=== PATIENT | female | born 1990 | race Caucasian/White ===

== ENCOUNTER 2018-05-19 10:02 | Emergency (ER) | payer BC ==
[2018-05-19 10:33] VITALS: BP 106/72; PULSE 74; TEMP 98.2; BMI 17.9
[2018-05-19 10:41] LABS: URINE APPEARANCE CLEAR; URINE BILIRUBIN NEGATIVE (NEGATIVE); URINE COLOR YELLOW; URINE GLUCOSE (UA) NEGATIVE (NEGATIVE); URINE KETONE NEGATIVE (NEGATIVE); URINE LEUK ESTERASE NEGATIVE (NEGATIVE); URINE NITRITE NEGATIVE (NEGATIVE); URINE PROTEIN NEGATIVE (NEGATIVE); URINE UROBILINOGEN 0.2 mg/dL (0.2-1.0)
[2018-05-19 10:44] LABS: HCG,QUALITATIVE URINE Negative
--- NOTE | 2018-05-19 11:38 | PDOC ---
History of Present Illness - General Chief Complaint: Urinary Problem Stated Complaint: painfula on urination Time Seen by Provider: 05/19/18 10:32 History Source: Patient Exam Limitations: No Limitations Past History - Past Medical History Allergies/Adverse Reactions: Allergies Allergy/AdvReac Type Severity Reaction Status Date / Time amoxicillin [Amoxicillin] Allergy Verified 02/26/13 13:15 Penicillins Allergy Hives Verified 02/26/13 13:15 Thyroid Disease: Yes - Suicide/Smoking/Psychosocial Hx Smoking Status: No Smoking History: Current every day smoker Have you smoked in the past 12 months: No Number of Cigarettes Smoked Daily: 10 Information on smoking cessation initiated: No Hx Alcohol Use: No Drug/Substance Use Hx: No *Physical Exam - Vital Signs Last Vital Signs Temp Pulse Resp BP Pulse Ox 98.2 F 74 18 106/72 99 05/19/18 10:17 05/19/18 10:17 05/19/18 10:17 05/19/18 10:17 05/19/18 10:17 - Physical Exam General Appearance: No: Apparent Distress Respiratory/Chest: positive: Lungs Clear, Normal Breath Sounds. negative: Respiratory Distress Cardiovascular: positive: Regular Rhythm, Regular Rate, S1, S2. negative: Murmur Female Pelvic Exam: positive: normal external exam, normal adnexa. negative: CMT, discharge, lesions, adnexal tenderness Gastrointestinal/Abdominal: positive: Normal Bowel Sounds, Tender (minimal TTP to LLQ; no TTP along RLQ), Soft. negative: Distended, Guarding, Rebound Musculoskeletal: negative: CVA Tenderness Integumentary: positive: Normal Color Neurologic: positive: Alert, Normal Mood/Affect ED Treatment Course - ADDITIONAL ORDERS Additional order review: Laboratory Results 05/19/18 10:22 Urine Color Yellow Urine Appearance Clear Urine pH 5.0 Ur Specific [place] 1.009 L Urine Protein Negative Urine Glucose (UA) Negative Urine Ketones Negative Urine Blood Negative Urine Nitrite Negative Urine Bilirubin Negative Urine Urobilinogen 0.2 Ur Leukocyte Esterase Negative Urine HCG, Qual Negative Medical Decision Making - Medical Decision Making 27 y/o F hx of hypothyroidism presents with LUQ pain radiating down to LLQ from today. Went to today, where she had urine test done which was normal and was advised to come to ED for further evaluation. Received Tylenol in UC which helped with pain. Denies dysuria, but mentions feeling a sense of discomfort along lower abdomen when pushing urine out. Denies fever, sob, vomiting, diarrhea, unusual vaginal discharge, hematuria. Denies prior abdominal surgeries UA negative UCG negative PE unremarkable Patient appears comfortable Not suspicious for acute abdominal/pelvic pathology Return precautions discussed 05/19/18 11:33 *DC/Admit/Observation/Transfer Diagnosis at time of Disposition: Abdominal pain Qualifiers: Abdominal location: left lower quadrant Qualified Code(s): R10.32 - Left lower quadrant pain - Discharge Dispostion Disposition: HOME Condition at time of disposition: Stable Decision to Admit order: No - Referrals Referrals: David Arguelles MD [Primary Care Provider] - 2 Days - Patient Instructions Printed Discharge Instructions: DI for Abdominal Pain-Adult Additional Instructions: Thank you for choosing [facility]. It was a pleasure taking care of you. Your urine test was normal If your urine culture is abnormal, you will be notified of results Return to the Emergency Department if your symptoms worsen or persist, you have fever, shortness of breath, chest pain, severe abdominal pain, vomiting, bloody stools, diarrhea or other concerning symptoms. - Post Discharge Activity
== END 2018-05-19 11:45 | disposition home or self-care (01) ==
LOC: JERFT 10:02
DX: R10.30 Lower abdominal pain, unspecified (principal); F17.210 Nicotine dependence, cigarettes, uncomplicated
CPT/HCPCS: 81003; 84703; 87086; 99281-25

== ENCOUNTER 2018-10-23 20:35 | Emergency (ER) | payer BC ==
[2018-10-23 20:52] VITALS: TEMP 98.5; BMI 17.9
--- NOTE | 2018-10-23 21:33 | PDOC ---
Attending Attestation - Resident Resident Name: SintiaJosh - ED Attending Attestation I have performed the following: I have examined & evaluated the patient, The case was reviewed & discussed with the resident, I agree w/resident's findings & plan, Exceptions are as noted - HPI HPI: 10/23/18 22:54 this 27 yo female has had palpitations and chest tightness for 2 days 10/24/18 01:21 - Physicial Exam PE: 10/23/18 23:16 thin 27 yo presents with complaint of palpitations for 2 days head ncat neck supple lngs cta b/l cvs [id number] abd nontender extremities no edema skin warm and dry neuro [id number],ambulatory 10/23/18 23:18 - Medical Decision Making 10/23/18 21:33 ekg nsr@69 bpm,yhr=051, no ekg changes from prior ekg 10/23/18 23:24 cxr no infiltrates,no consolidations,normal mediastinum,no effusions,normal cardiac silhouette 10/24/18 01:07 negative d dimer negative troponin 10/24/18 01:08 cbc and chemistries are unremarkable musculoskeletal pain/atypical chest pain
--- NOTE | 2018-10-23 22:22 | PDOC ---
History of Present Illness - General Chief Complaint: Palpitations Stated Complaint: HEART PALPITATIONS Time Seen by Provider: 10/23/18 21:25 History Source: Patient Exam Limitations: No Limitations - History of Present Illness Initial Comments: 10/23/18 22:01 27 yo F with a hx of hypothyroidism and known EKG changes (EKG done at Dr. Conley's office report shows poor R wave progression and right harrison axis deviation presents to the emergency department with palpitations that have been ongoing for 5 days. Per the patient, she states that her usual episodes usually are one episode and do not occur for longer than a few minutes. She has been evaluated by her PMD with an EKG showing on report that she had poor R wave progression and right axis deviation (May 2018). In addition, the patient states she is stressed due to an upcoming wedding. The patient currently is asymptomatic. Denies the following: recent drug use, fever, chills, SOB, abdominal pain, dysuria, hematuria, and dysuria. Endorses increased urinary frequency. States she smokes with a vape. Past History - Past Medical History Allergies/Adverse Reactions: Allergies Allergy/AdvReac Type Severity Reaction Status Date / Time amoxicillin [Amoxicillin] Allergy Verified 10/23/18 20:48 Penicillins Allergy Hives Verified 10/23/18 20:48 Home Medications: Ambulatory Orders Levothyroxine [Synthroid -] 125 mcg PO DAILY 10/23/18 COPD: No Thyroid Disease: Yes - Immunization History Immunization Up to Date: Yes - Suicide/Smoking/Psychosocial Hx Smoking Status: No Smoking History: Never smoked Have you smoked in the past 12 months: No Number of Cigarettes Smoked Daily: 10 Information on smoking cessation initiated: No Hx Alcohol Use: No Drug/Substance Use Hx: No Review of Systems - Review of Systems Able to Perform ROS?: Yes Is the patient limited Kosovan proficient: No Constitutional: No: Chills, Diaphoresis, Fever, Weakness HEENTM: No: Eye Pain, Ear Pain, Nose Pain, Throat Pain, Mouth Pain Respiratory: No: Cough, Shortness of Breath, Hemoptysis Cardiac (ROS): Yes: Palpitations. No: Chest Pain, Lightheadedness, Syncope, Chest Tightness ABD/GI: No: Abdominal Distended, Constipated, Diarrhea, Difficulty Swallowing, Nausea, Poor Appetite, Poor Fluid Intake, Rectal Bleeding, Vomiting, Tarry Stools : Yes: Frequency. No: Burning, Dysuria, Discharge Musculoskeletal: No: Back Pain, Joint Pain, Neck Pain Integumentary: No: Bruising, Erythema, Flushing, Lesions, Lumps Neurological: No: Headache, Numbness, Tingling, Tremors Psychiatric: No: Change in Appetite Endocrine: No: Unexplained Weight Gain Hematologic/Lymphatic: No: Anemia *Physical Exam - Vital Signs Last Vital Signs Temp Pulse Resp BP Pulse Ox 98.5 F 77 17 119/77 100 10/23/18 20:49 10/23/18 20:49 10/23/18 20:49 10/23/18 20:49 10/23/18 20:49 - Physical Exam General Appearance: Yes: Nourished, Appropriately Dressed, Thin. No: Apparent Distress, Alcohol on Breath, Intoxicated HEENT: positive: EOMI, HAMZAH, Normal Voice, Symmetrical, Pharynx Normal, Hearing Grossly Normal. negative: Pale Conjunctivae, Scleral Icterus (R), Scleral Icterus (L), Muffled/Hoarse voice, Pharyngeal Erythema, Tonsillar Exudate, Tonsillar Erythema, Rhinorrhea, Sinus Tenderness, Excessive drooling Neck: positive: Trachea midline, Supple. negative: Tender, Lymphadenopathy (R) , Lymphadenopathy (L), Tender lateral, Tender midline Respiratory/Chest: positive: Lungs Clear, Normal Breath Sounds. negative: Chest Tender, Respiratory Distress, Accessory Muscle Use, Rales, Rhonchi, Stridor, Wheezing Cardiovascular: positive: Regular Rhythm, Regular Rate, S1, S2. negative: Systolic Murmur Gastrointestinal/Abdominal: positive: Normal Bowel Sounds, Flat, Soft. negative : Tender, Distended, Guarding, Rebound, Tenderness Lymphatic: negative: Adenopathy Musculoskeletal: positive: Normal Inspection. negative: CVA Tenderness, Vertebral Tenderness Extremity: positive: Normal Capillary Refill, Normal Inspection, Normal Range of Motion. negative: Tender Integumentary: positive: Normal Color, Dry, Warm. negative: Moist, Hives, Petechiae, Swelling, Ecchymosis Neurologic: positive: safety aide II-XII NML intact, Fully Oriented, Alert, Normal Mood/ Affect, Normal Response, Motor Strength 5/5. negative: Facial Droop, Numbness, Sensory Deficit ED Treatment Course - LABORATORY CBC & Chemistry Diagram: 10/23/18 22:46 10/23/18 22:46 Medical Decision Making - Medical Decision Making 10/24/18 01:12 27 yo F with a hx of hypothyroidism and known EKG changes (EKG done at Dr. Conley's office report shows poor R wave progression and right harrison axis deviation presents to the emergency department with palpitations that have been ongoing for 5 days. Initial vitals: Initial Vital Signs Temp Pulse Resp BP Pulse Ox 98.5 F 77 17 119/77 100 10/23/18 20:49 10/23/18 20:49 10/23/18 20:49 10/23/18 20:49 10/23/18 20:49 Work up: acs work up. will obtain d-dimer to rule out PE. Laboratory Tests 10/23/18 10/23/18 10/23/18 22:30 22:46 22:46 WBC 5.3 RBC 3.80 Hgb 12.2 Hct 35.8 MCV 94.1 MCH 32.1 MCHC 34.1 RDW 12.6 Plt Count 186 MPV 10.2 Absolute Neuts (auto) 2.8 Neutrophils % 52.2 Lymphocytes % 37.5 Monocytes % 7.0 Eosinophils % 2.2 Basophils % 1.1 Nucleated RBC % 0 D-Dimer Sodium 140 Potassium 3.5 Chloride 106 Carbon Dioxide 28 Anion Gap 6 L BUN 12.8 Creatinine 1.1 Est GFR (CKD-EPI)AfAm 78.57 Est GFR (CKD-EPI)NonAf 67.79 Random Glucose 79 Calcium 9.3 Total Bilirubin 0.8 AST 17 ALT 15 Alkaline Phosphatase 51 Creatine Kinase 197 H Creatine Kinase Index No Result Required. CK-MB (CK-2) < 1.0 Troponin I < 0.02 Total Protein 7.4 Albumin 4.3 Serum , Qual Urine Color Yellow Urine Appearance Clear Urine pH 5.5 Ur Specific [place] 1.013 Urine Protein Negative Urine Glucose (UA) Negative Urine Ketones Negative Urine Blood Negative Urine Nitrite Negative Urine Bilirubin Negative Urine Urobilinogen 1.0 Ur Leukocyte Esterase Negative 10/23/18 10/24/18 22:46 00:00 WBC RBC Hgb Hct MCV MCH MCHC RDW Plt Count MPV Absolute Neuts (auto) Neutrophils % Lymphocytes % Monocytes % Eosinophils % Basophils % Nucleated RBC % D-Dimer 224 Sodium Potassium Chloride Carbon Dioxide Anion Gap BUN Creatinine Est GFR (CKD-EPI)AfAm Est GFR (CKD-EPI)NonAf Random Glucose Calcium Total Bilirubin AST ALT Alkaline Phosphatase Creatine Kinase Creatine Kinase Index CK-MB (CK-2) Troponin I Total Protein Albumin Serum , Qual Negative Urine Color Urine Appearance Urine pH Ur Specific [place] Urine Protein Urine Glucose (UA) Urine Ketones Urine Blood Urine Nitrite Urine Bilirubin Urine Urobilinogen Ur Leukocyte Esterase EKG shows poor R wave progression with right axis deviation. this is consistent to the previous EKG report at her PMD's office. the patient will receive tylenol for pain relief. CXR negative for acute process. On reassessment, the patient has pressure in her throat and chest. will receive NS, pepcid, and maalox. Will reassess. 10/24/18 01:49 on reassessment, the patient has some improvement of symptoms but still has a presence. she was given strict return precautions. patient agreed to them. Dispo: Discharge *DC/Admit/Observation/Transfer Diagnosis at time of Disposition: Palpitations - Referrals Referrals: David Arguelles MD [Primary Care Provider] - - Patient Instructions Printed Discharge Instructions: DI for Palpitations, DI for Arrhythmias Additional Instructions: You were seen for your palpitations. please return to the emergency department if you have worsening symptoms or new concerning symptoms. thank you. - Post Discharge Activity
[2018-10-23 22:41] LABS: PH,URINE 5.5 (5.0-8.0); URINE APPEARANCE CLEAR; URINE BILIRUBIN NEGATIVE (NEGATIVE); URINE COLOR YELLOW; URINE GLUCOSE (UA) NEGATIVE (NEGATIVE); URINE KETONE NEGATIVE (NEGATIVE); URINE LEUK ESTERASE NEGATIVE (NEGATIVE); URINE NITRITE NEGATIVE (NEGATIVE); URINE PROTEIN NEGATIVE (NEGATIVE)
[2018-10-23 22:53] LABS: BASO % 1.1 % (0-2.0); EOS % 2.2 % (0-4.5); HEMATOCRIT 35.8 % (32.4-45.2); HEMOGLOBIN 12.2 GM/dL (10.7-15.3); LYMPH % 37.5 % (8-40); MCH 32.1 pg (25.7-33.7); MCHC 34.1 g/dl (32.0-36.0); MEAN CELL VOLUME 94.1 fl (80-96); MEAN PLT VOLUME 10.2 fl (7.5-11.1); NEUT % 52.2 % (42.8-82.8); PLATELET COUNT 186 K/MM3 (134-434); RDW 12.6 % (11.6-15.6); WHITE BLOOD COUNT 5.3 K/mm3 (4.0-10.0)
[2018-10-23 23:38] LABS: ALBUMIN 4.3 g/dl (3.4-5.0); ALK PHOS 51 U/L (45-117); ANION GAP 6 MMOL/L (8-16); BILIRUBIN,TOTAL 0.8 mg/dL (0.2-1); BLOOD UREA NITROGEN 12.8 mg/dL (7-18); CALCIUM 9.3 mg/dL (8.5-10.1); CHLORIDE 106 mmol/L (98-107); CO2 28 mmol/L (21-32); CREATININE 1.1 mg/dL (0.55-1.3); GLUCOSE,RANDOM 79 mg/dL (74-106); POTASSIUM 3.5 mmol/L (3.5-5.1); SGOT/AST 17 U/L (15-37); SGPT/ALT 15 U/L (13-61); SODIUM 140 mmol/L (136-145); TOT PROT 7.4 g/dl (6.4-8.2)
[2018-10-23 23:41] VITALS: BP 108/75
[2018-10-24] MEDS ORDERED: ACETAMINOPHEN 325 MG TABLET (FP) PO ONE (00:04)
[2018-10-24] MEDS ORDERED: ACETAMINOPHEN 325 MG TABLET (FP) ONE (00:06)
[2018-10-24] MEDS ORDERED: SODIUM CHLORIDE 1,000 ML IV STA (00:29)
[2018-10-24] MEDS ORDERED: MAG HYDROX/AL HYDROX/SIMETH 30 ML UNIT-DOSE CUP PO ONE (00:54)
[2018-10-24] MEDS ORDERED: FAMOTIDINE 20 MG/50 ML IVPB 20 MG/50 ML MG IVPB ONE ×2 (00:54→00:57)
[2018-10-24] MEDS ORDERED: MAG HYDROX/AL HYDROX/SIMETH 30 ML UNIT-DOSE CUP ONE (00:57)
[2018-10-24 01:41] VITALS: PULSE 59
--- NOTE | 2018-10-24 11:27 | EKG ---
Test Reason : Blood Pressure : / mmHG Vent. Rate : 069 BPM Atrial Rate : 069 BPM P-R Int : 180 ms QRS Dur : 088 ms QT Int : 414 ms P-R-T Axes : 078 106 052 degrees QTc Int : 443 ms NORMAL SINUS RHYTHM POSSIBLE LEFT ATRIAL ENLARGEMENT CANNOT RULE OUT ANTERIOR INFARCT , AGE UNDETERMINED ABNORMAL ECG NO PREVIOUS ECGS AVAILABLE Confirmed by MEHNAZ KRISHNAN MD ([id number]) on 10/24/2018 11:27:22 AM Referred By: Confirmed By:MEHNAZ KRISHNAN MD
== END 2018-10-24 01:54 | disposition home or self-care (01) ==
LOC: JER 20:35
PROC: 3E033GC Introduction of Other Therapeutic Substance into Peripheral Vein, Percutaneous Approach (ICD-10-PCS; principal; 2018-10-23)
PROC: 3E0337Z Introduction of Electrolytic and Water Balance Substance into Peripheral Vein, Percutaneous Approach (ICD-10-PCS; 2018-10-23)
DX: R00.2 Palpitations (principal); R94.31 Abnormal electrocardiogram [ECG] [EKG]; E03.9 Hypothyroidism, unspecified; J39.2 Other diseases of pharynx; R07.9 Chest pain, unspecified
CPT/HCPCS: 36415; 71046-TC-FY; 80053; 81003; 82550; 82553; 84484; 84703; 85025; 85379; 87086; 93005; 93010; 99284-25; J7030

== ENCOUNTER 2020-01-15 00:54 | Emergency (ER) | payer BC ==
[2020-01-15 01:13] VITALS: TEMP 97.7; BMI 18.1
[2020-01-15] MEDS ORDERED: SODIUM CHLORIDE 0.9% 500 ML INFUS.BAG IV ONE (02:36)
[2020-01-15] MEDS ORDERED: ACETAMINOPHEN 1000 MG/100 ML VIAL (NON FORMULARY) IVPB ONE (02:37)
[2020-01-15] MEDS ORDERED: ACETAMINOPHEN INJECTION 100 ML IVPB ONE (02:39)
[2020-01-15 02:46] LABS: BASO % 0.8 % (0-2.0); EOS % 2.2 % (0-4.5); HEMATOCRIT 35.2 % (32.4-45.2); HEMOGLOBIN 11.8 GM/dL (10.7-15.3); LYMPH % 32.2 % (8-40); MCH 31.4 pg (25.7-33.7); MCHC 33.4 g/dl (32.0-36.0); MEAN PLT VOLUME 9.9 fl (7.5-11.1); MONO % 6.2 % (3.8-10.2); NEUT % 58.6 % (42.8-82.8); PLATELET COUNT 181 K/MM3 (134-434); RBC 3.75 M/mm3 (3.60-5.2); RDW 12.1 % (11.6-15.6); WHITE BLOOD COUNT 5.5 K/mm3 (4.0-10.0)
[2020-01-15 03:00] LABS: CHLORIDE 106 mmol/L (98-107); POTASSIUM 3.7 mmol/L (3.5-5.1); SODIUM 138 mmol/L (136-145)
[2020-01-15 03:02] LABS: ALBUMIN 4.1 g/dl (3.4-5.0); ANION GAP 5 MMOL/L (8-16); BLOOD UREA NITROGEN 11.9 mg/dL (7-18); CALCIUM 8.8 mg/dL (8.5-10.1); CO2 26 mmol/L (21-32); GLUCOSE,RANDOM 91 mg/dL (74-106)
[2020-01-15 03:06] LABS: SGOT/AST 14 U/L (15-37); SGPT/ALT 16 U/L (13-61)
[2020-01-15 03:07] LABS: BILIRUBIN,TOTAL 0.7 mg/dL (0.2-1); TOT PROT 7.1 g/dl (6.4-8.2)
[2020-01-15 03:08] LABS: ALK PHOS 41 U/L (45-117)
[2020-01-15 05:00] VITALS: BP 128/76; PULSE 78
== END 2020-01-15 04:12 | disposition home or self-care (01) ==
LOC: JER 00:54
PROC: 3E0333Z Introduction of Anti-inflammatory into Peripheral Vein, Percutaneous Approach (ICD-10-PCS; principal; 2020-01-15)
DX: R00.2 Palpitations (principal)
CPT/HCPCS: 36415; 71046-TC-FY; 80053; 82550; 84439; 84443; 84484; 85025; 93005; 93010; 99285-25; J0131

== ENCOUNTER 2022-06-16 11:18 | Emergency (ER) | payer BC, OTHER ==
[2022-06-16 11:24] VITALS: BP 137/98; PULSE 89; RESP 20; TEMP 97.8
[2022-06-16] MEDS ORDERED: predniSONE 20 MG TABLET (UD) PO ONE (12:01)
[2022-06-16] MEDS ORDERED: predniSONE 20 MG TABLET (UD) ONE (12:17)
== END 2022-06-16 12:39 | disposition home or self-care (01) ==
LOC: JERFT 11:18
DX: O99.711 Diseases of the skin and subcutaneous tissue complicating pregnancy, first trimester (principal); L50.9 Urticaria, unspecified; Z3A.01 Less than 8 weeks gestation of pregnancy
CPT/HCPCS: 99283-25

== ENCOUNTER 2023-01-29 16:50 | Inpatient (IN) | payer BC, OTHER ==
[2023-01-30] MEDS ORDERED: OXYTOCIN 30 UNITS in 0.9% NS 30 UNIT/500 ML INFUS.BAG IVPB SCH (01:45)
[2023-01-30 01:53] VITALS: BMI 25.8
[2023-01-30] MEDS: ELECTROLYTE-148 SOLN 1,000 ML IV SCH ×2 (02:00→08:33)
[2023-01-30 02:24] LABS: BASO % 0.8 % (0-2.0); EOS % 0.6 % (0-4.5); HEMATOCRIT 36.5 % (32.4-45.2); HEMOGLOBIN 12.4 GM/dL (10.7-15.3); MCH 31.5 pg (25.7-33.7); MCHC 33.9 g/dl (32.0-36.0); MEAN PLT VOLUME 10.1 fl (7.5-11.1); MONO % 5.4 % (3.8-10.2); NEUT % 75.2 % (42.8-82.8); PLATELET COUNT 184 10^3/uL (134-434); RBC 3.93 M/mm3 (3.60-5.2); RDW 13.2 % (11.6-15.6); WHITE BLOOD COUNT 13.5 K/mm3 (4.0-10.0)
[2023-01-30 02:36] LABS: PROTHROMBIN TIME (PATIENT) 11.6 SEC (9.7-13.0)
[2023-01-30 02:39] LABS: ACTIVATED PTT 26.5 SECONDS (25.2-36.5)
[2023-01-30 02:44] LABS: CALCIUM 8.7 mg/dL (8.5-10.1)
[2023-01-30 02:48] LABS: CREATININE 0.7 mg/dL (0.55-1.3)
[2023-01-30] MEDS ORDERED: OXYTOCIN 30 UNITS in 0.9% NS 30 UNIT/500 ML INFUS.BAG IVPB ONE (02:58)
[2023-01-30] MEDS ORDERED: LEVOTHYROXINE NA 125 MCG TABLET (FP) PO SCH (07:00)
[2023-01-30] MEDS: LEVOTHYROXINE NA 150 MCG TABLET PO SCH (08:33)
[2023-01-30] MEDS ORDERED: FENTANYL/BUPIVACAINE/NS/PF - PCEA - 50 ML DISP.SYRIN EP ONE ×3 (09:17→19:01)
[2023-01-30] MEDS: FENTANYL/BUPIVACAINE/NS/PF - PCEA - 50 ML DISP.SYRIN EP SCH ×3 (09:50→19:42)
[2023-01-30] MEDS ORDERED: NALOXONE HCL 0.4 MG/ML VIAL IVPUSH PRN (10:13)
[2023-01-30] MEDS ORDERED: LIDOCAINE HCL 1% PRESERVATIVE FREE - 30ML VIAL ONE (16:10)
[2023-01-30] MEDS ORDERED: OXYTOCIN 20 UNITS in 0.9% NS 20 UNIT/1,000 ML INFUS.BAG IV ONE (16:11)
[2023-01-30] MEDS ORDERED: ACETAMINOPHEN 1000 MG/100 ML BAG IVPB ONE (16:59)
[2023-01-30] MEDS ORDERED: FENTANYL CITRATE/PF 50 MCG/ML VIAL ONE (19:42)
[2023-01-30] MEDS ORDERED: PHENYLEPHRINE HCL 10 MG/1 ML SINGLE DOSE VIAL ONE (20:23)
[2023-01-30] MEDS ORDERED: KETOROLAC TROMETHAMINE 30 MG/1 ML VIAL ONE (20:23)
[2023-01-30] MEDS ORDERED: ONDANSETRON 4 MG/2 ML VIAL ONE (20:23)
[2023-01-30] MEDS ORDERED: OXYTOCIN 10 UNITS/ML VIAL ONE (20:23)
[2023-01-30] MEDS ORDERED: morphine SULFATE/PF 1 MG/2 ML (2cc Syringe - QUVA) ONE (20:23)
[2023-01-30] MEDS ORDERED: ceFAZolin SODIUM 1 GM VIAL ONE (20:24)
[2023-01-30 21:54] LABS: CORD HCO3 19.3 mmHg (20-29); CORD PCO2 34.2 mmHg (30-78); CORD pH 7.369 (7.14-7.44)
[2023-01-30 22:00] LABS: CORD HCO3 21.3 mmHg (20-29); CORD PCO2 42.7 mmHg (30-78); CORD pH 7.315 (7.14-7.44)
[2023-01-30] MEDS ORDERED: BENZOCAINE 28 GM HEMORRHOIDAL OINTMENT TP PRN (22:03)
[2023-01-30] MEDS ORDERED: IBUPROFEN 800 MG/8 ML IJ IVPB PRN (22:03)
[2023-01-30] MEDS ORDERED: WITCH HAZEL 50% (TUCKS) 40 PAD/JAR PAD TP PRN (22:03)
[2023-01-30] MEDS ORDERED: METHYLERGONOVINE MALEATE 0.2 MG/1 ML AMP IM PRN (22:03)
[2023-01-30] MEDS ORDERED: BENZOCAINE 20% 57 GM BOTTLE TP PRN (22:03)
[2023-01-30] MEDS ORDERED: SENNOSIDES/DOCUSATE COMBO (SENNA PLUS) TABLET (UD) PO PRN (22:03)
[2023-01-30] MEDS: OXYTOCIN 20 UNITS in 0.9% NS 20 UNIT/1,000 ML INFUS.BAG IV SCH (22:15)
[2023-01-31] MEDS: SIMETHICONE 80 MG TAB.CHEW (FP) PO PRN ×2 (06:37→20:23)
[2023-01-31] MEDS: ACETAMINOPHEN 325 MG TABLET (FP) PO PRN (06:39)
[2023-01-31] MEDS: LEVOTHYROXINE NA 150 MCG TABLET PO SCH (07:03)
[2023-01-31] MEDS: OXYTOCIN 20 UNITS in 0.9% NS 20 UNIT/1,000 ML INFUS.BAG IV SCH (07:05)
[2023-01-31 08:35] LABS: BASO % 0.1 % (0-2.0); EOS % 0.2 % (0-4.5); HEMATOCRIT 29.7 % (32.4-45.2); HEMOGLOBIN 10.2 GM/dL (10.7-15.3); LYMPH % 7.3 % (8-40); MCH 32.2 pg (25.7-33.7); MCHC 34.3 g/dl (32.0-36.0); MEAN CELL VOLUME 93.8 fl (80-96); MEAN PLT VOLUME 9.8 fl (7.5-11.1); MONO % 4.6 % (3.8-10.2); NEUT % 87.8 % (42.8-82.8); PLATELET COUNT 134 10^3/uL (134-434); RBC 3.17 M/mm3 (3.60-5.2); RDW 13.1 % (11.6-15.6); WHITE BLOOD COUNT 13.1 K/mm3 (4.0-10.0)
[2023-01-31] MEDS ORDERED: oxyCODONE HCL 5 MG TABLET PO PRN ×2 (10:03)
[2023-01-31] MEDS: PRENATAL VITAMINS W/ FOLIC ACID TABLET (FP) PO SCH (11:44)
[2023-01-31] MEDS: IBUPROFEN 600 MG TABLET (FP) PO PRN ×2 (13:03→20:24)
[2023-01-31] MEDS ORDERED: BISACODYL 10 MG SUPP.RECT RC PRN (22:03)
[2023-02-01] MEDS: IBUPROFEN 600 MG TABLET (FP) PO PRN ×4 (01:54→22:12)
[2023-02-01] MEDS: LEVOTHYROXINE 112 MCG, LEVOTHYROXINE 25 MCG PO SCH (06:39)
[2023-02-01] MEDS: PRENATAL VITAMINS W/ FOLIC ACID TABLET (FP) PO SCH (10:02)
[2023-02-01] MEDS: guaiFENesin 200 MG/10 ML 10 ML UNIT-DOSE CUPS PO PRN (17:28)
[2023-02-01] MEDS: SIMETHICONE 80 MG TAB.CHEW (FP) PO PRN (17:35)
[2023-02-01] MEDS: ACETAMINOPHEN 325 MG TABLET (FP) PO PRN (17:35)
[2023-02-01 22:56] VITALS: RESP 17
[2023-02-01] MEDS: TRIAMCINOLONE ACET 0.1% OINT 15 GM TUBE TP SCH (22:57)
[2023-02-02] MEDS: IBUPROFEN 600 MG TABLET (FP) PO PRN ×2 (04:13→07:46)
[2023-02-02] MEDS: LEVOTHYROXINE 112 MCG, LEVOTHYROXINE 25 MCG PO SCH (06:15)
[2023-02-02] MEDS: guaiFENesin 200 MG/10 ML 10 ML UNIT-DOSE CUPS PO PRN (07:46)
[2023-02-02 08:08] LABS: BASO % 0.3 % (0-2.0); EOS % 2.7 % (0-4.5); HEMATOCRIT 28.6 % (32.4-45.2); HEMOGLOBIN 9.7 GM/dL (10.7-15.3); LYMPH % 14.7 % (8-40); MCH 32.2 pg (25.7-33.7); MCHC 34.1 g/dl (32.0-36.0); MEAN CELL VOLUME 94.4 fl (80-96); MEAN PLT VOLUME 9.4 fl (7.5-11.1); MONO % 7.8 % (3.8-10.2); NEUT % 74.5 % (42.8-82.8); PLATELET COUNT 149 10^3/uL (134-434); RBC 3.03 M/mm3 (3.60-5.2); RDW 13.4 % (11.6-15.6)
[2023-02-02] MEDS: PRENATAL VITAMINS W/ FOLIC ACID TABLET (FP) PO SCH (09:13)
[2023-02-02] MEDS: TRIAMCINOLONE ACET 0.1% OINT 15 GM TUBE TP SCH (10:00)
[2023-02-02 10:42] VITALS: BP 117/75; PULSE 56; TEMP 97.6
== END 2023-02-02 15:10 | disposition home or self-care (01) | DRG 788 ==
LOC: JDEL 16:50 → JLDR 23:45 → J3W 01-31 01:30
PROVIDERS: ADMIT Obstetrics & Gynecology; ATTEND Obstetrics & Gynecology
PROC: 10D00Z1 Extraction of Products of Conception, Low, Open Approach (ICD-10-PCS; principal; 2023-01-30)
DX: O62.1 Secondary uterine inertia (principal); Z3A.39 39 weeks gestation of pregnancy; Z37.0 Single live birth
CPT/HCPCS: 0241U-QW; 36415; 36600; 76819-TC; 80048; 82803; 85025; 85610; 85730; 86780; 86850; 86900; 86901; 88307-TC; 94010

== ENCOUNTER 2024-06-09 21:38 | Emergency (ER) | payer BC, OTHER ==
[2024-06-09 21:51] VITALS: BP 120/80; PULSE 64; RESP 18; TEMP 97.9; BMI 20.7
[2024-06-09] MEDS ORDERED: FAMOTIDINE 20 MG/50 ML IVPB 20 MG/50 ML MG IVPB ONE (23:13)
[2024-06-09] MEDS ORDERED: MAG HYDROX/AL HYDROX/SIMETH 30 ML UNIT-DOSE CUP ONE (23:13)
[2024-06-09] MEDS ORDERED: ACETAMINOPHEN INJECTION 100 ML ONE (23:13)
[2024-06-09] MEDS: ACETAMINOPHEN 1000 MG/100 ML BAG IVPB ONE (23:30)
[2024-06-09] MEDS: MAG HYDROX/AL HYDROX/SIMETH 30 ML UNIT-DOSE CUP PO ONE (23:32)
[2024-06-09] MEDS: FAMOTIDINE 20 MG/50 ML IVPB 20 MG/50 ML MG IVPB ONE (23:32)
[2024-06-09 23:36] LABS: HEMATOCRIT 33.5 % (34.1-44.9); HEMOGLOBIN 10.8 g/dL (11.2-15.7); MCHC 32.2 g/dl (32.2-35.5); MEAN CELL VOLUME 97.7 fl (79.4-94.8); MEAN PLT VOLUME 11.1 fl (9.4-12.3); PLATELET COUNT 212 x10^3/uL (182-369); RDW 12.5 % (12.1-16.8)
[2024-06-09 23:52] LABS: POTASSIUM 4.2 mmol/L (3.5-5.1)
[2024-06-09 23:54] LABS: BLOOD UREA NITROGEN 10.2 mg/dL (7-18); CALCIUM 9.2 mg/dL (8.5-10.1)
[2024-06-09 23:57] LABS: CREATININE 1.1 mg/dL (0.55-1.3)
[2024-06-09 23:59] LABS: BILIRUBIN,TOTAL 0.4 mg/dL (0.2-1)
[2024-06-10 00:51] LABS: HCV DIAGNOSTIC IN-HOUSE W/RFLX NON-REACTIVE (NONREACTIVE); HIV INTERPRETATION NEGATIVE (NEGATIVE)
== END 2024-06-10 00:45 | disposition home or self-care (01) ==
LOC: JER 21:38
PROC: 3E033GC Introduction of Other Therapeutic Substance into Peripheral Vein, Percutaneous Approach (ICD-10-PCS; principal; 2024-06-09)
PROC: 3E033NZ Introduction of Analgesics, Hypnotics, Sedatives into Peripheral Vein, Percutaneous Approach (ICD-10-PCS; 2024-06-09)
DX: R07.89 Other chest pain (principal)
CPT/HCPCS: 36415; 71046-TC-FY; 80053; 84484; 85027; 86803; 87389; 93005; 93010; 99285-25; J0131